=== PATIENT | male | born 1995 | race African-American/Black ===

== ENCOUNTER 2016-08-04 17:57 | Emergency (ER) | payer MEDICAID ==
[~2016-08-04] VITALS: Ht 175.3 cm; Wt 64.0 kg
[2016-08-04] MEDS ORDERED: LIDOCAINE HCL/EPINEPHRINE 1%-EPI 1:100,000 20 ML VIAL MC ONE (19:00)
[2016-08-04] MEDS ORDERED: BACITRACIN ZINC OINT UDPKT TOP ONE (19:00)
[2016-08-04] MEDS ORDERED: MORPHINE SULFATE 4 MG/ML CPJ (NOT FOR IM USE) IV ONE (19:00)
[2016-08-04] MEDS ORDERED: TETANUS, DIPHTHERIA, PERTUSSIS VAC/PF 0.5ML (>7YR OLD) IM ONE (19:00)
[2016-08-04] MEDS ORDERED: IBUPROFEN 600MG TABLET PO ONE (20:30)
[2016-08-04 22:43] VITALS: BP 110/60
== END 2016-08-04 23:15 | disposition home or self-care (01) ==
LOC: ER 17:57
PROC: 0HQBXZZ Repair Right Upper Arm Skin, External Approach (ICD-10-PCS; principal; 2016-08-04)
DX: S41.011A Laceration without foreign body of right shoulder, initial encounter (principal); S40.011A Contusion of right shoulder, initial encounter; J45.909 Unspecified asthma, uncomplicated; F12.10 Cannabis abuse, uncomplicated; W01.110A Fall on same level from slipping, tripping and stumbling with subsequent striking against sharp glass, initial encounter; Y93.89 Activity, other specified; Y92.89 Other specified places as the place of occurrence of the external cause
CPT/HCPCS: 12005; 73030; 90471; 90715; 96374; 99284; J3490; Z7610; J2270